=== PATIENT | male | born 1965 | race Caucasian/White ===

== ENCOUNTER 2020-03-04 10:40 | Emergency (ER) | payer OTHER ==
[~2020-03-04] VITALS: Ht 182.9 cm; Wt 81.8 kg
[2020-03-04 10:46] VITALS: BP 134/87; PULSE 64; TEMP 98.1
[2020-03-04] MEDS ORDERED: DOXYCYCLINE 10100 MG PO (11:21)
== END 2020-03-04 11:35 | disposition home or self-care (01) ==
LOC: COL.ER 10:40
DX: S01.01XA Laceration without foreign body of scalp, initial encounter (principal); V86.59XA Driver of other special all-terrain or other off-road motor vehicle injured in nontraffic accident, initial encounter